=== PATIENT | female | born 1960 | race Caucasian/White ===

== ENCOUNTER 2019-09-14 15:07 | Emergency (ER) | payer OTHER ==
[~2019-09-14] VITALS: Ht 162.6 cm; Wt 49.9 kg
[2019-09-14] VITALS (7 sets, daily range): BP systolic 122–189; BP diastolic 72–99
--- NOTE | 2019-09-14 15:35 | Emergency Room Report ---
History of Present Illness General Chief Complaint: Overdose Source: EMS (Baldomero Johnson MD) Present Illness HPI Disclaimer: Please note that this report is being documented using DRAGON technology. This can lead to erroneous entry secondary to incorrect interpretation by the dictating instrument. HPI: This is a 55-year-old female with a history of Parkinson's, severe spinal scoliosis/stenosis currently awaiting spinal fusion at [facility] in October presenting after an intentional overdose on [place]. The patient states that she has been in severe pain for a long time now and could no longer bear to be in pain all day and could no longer wait for her spinal surgery as scheduled. Throughout the morning she is taking handfuls, stating proximally 5 at a time, [place] tablets for an estimated total ingestion of 40 to 50 tablets. This was spread out over several hours. She noted nausea at home but has not vomited. She was complaining of abdominal pain though this is improving. Patient called her sister to "say ryankirk" who informed EMS and fire. They found her awake and alert, no respiratory distress, no interventions were performed. Patient is tearful and reports feeling significant helplessness stating that she has seen specialists all over town and no one has been able to help her with her pain. This was her first attempt at self-harm. Also states she had a small amount of vodka along with the [place] tablets. Denies any other coingestants. She follows with a psychiatrist at [place]. PMH: Parkinson's, spinal stenosis, depression PSH: Appendectomy, lithotripsy Allergies: Denies Social Hx: Denies drug or alcohol abuse (Baldomero Johnson MD) Allergies: Coded Allergies: No Known Allergies (Unverified , 09/14/19) Nursing Documentation-PMH Past Medical History: No History, Except For (Baldomero Johnson MD) Review of Systems All Other Systems: negative except mentioned in HPI (Baldomero Johnson MD) Physical Exam Vital Signs Date Time Temp Pulse Resp B/P (MAP) Pulse Ox O2 Delivery O2 Flow Rate FiO2 09/14/19 15:10 98.1 134 20 161/75 (103) 98 Room Air General: Awake and alert, tearful and emotional, well-kempt HEENT: NC/AT. EOMI. PERRLA. Pupils are 4 mm bilaterally. Moist mucous membranes Cardiovascular: Tachycardic. S1 and S2 normal. No murmur appreciated Resp: Normal work of breathing. No cough, wheezing or crackles appreciated Abdomen: Abdomen is soft, nondistended. Nontender Skin: Intact. No abrasions, laceration or rash over the exposed skin. There is bruising over the left forearm, appears to be healing MSK: Normal tone and bulk. Moving all extremities. No obvious deformity. Neuro: Awake and alert. Mentating appropriately. Good historian, no ataxia. Facial expressions are symmetrical. Good insight into her medical condition. (Baldomero Johnson MD) Medical Decision Making Diagnostic Impression: Primary Impression: Suicide ideation Additional Impression: Alcohol withdrawal syndrome Qualified Codes: F10.230 - Alcohol dependence with withdrawal, uncomplicated ER Course Is a 58-year-old female with a history of chronic back pain who took 40 to 60 tablets of [place] with a minor amount of alcohol today as a suicide attempt. She arrives tachycardic but otherwise has vital signs within normal limits. We will start a broad metabolic, toxic infectious work-up as the patient will require psychiatric evaluation. She continues to endorse feeling hopeless but states that this ingestion today was more to stop the pain rather than wanting to truly kill herself. Laboratory Tests Test 09/14/19 15:47 09/14/19 18:00 White Blood Count 6.5 K/UL (4.8-10.8) Red Blood Count 3.79 M/UL (4.20-5.40) L Hemoglobin 13.3 G/DL (12.0-16.0) Hematocrit 37.5 % (37.0-47.0) Mean Corpuscular Volume 99 FL (80-99) Mean Corpuscular Hemoglobin 35.0 PG (27.0-31.0) H Mean Corpuscular Hemoglobin Concent 35.3 G/DL (32.0-36.0) Red Cell Distribution Width 10.3 % (11.6-14.8) L Platelet Count 275 K/UL (150-450) Mean Platelet Volume 5.6 FL (6.5-10.1) L Neutrophils (%) (Auto) 72.6 % (45.0-75.0) Lymphocytes (%) (Auto) 20.4 % (20.0-45.0) Monocytes (%) (Auto) 6.3 % (1.0-10.0) Eosinophils (%) (Auto) 0.2 % (0.0-3.0) Basophils (%) (Auto) 0.5 % (0.0-2.0) Sodium Level 144 MMOL/L (136-145) Potassium Level 3.9 MMOL/L (3.5-5.1) Chloride Level 105 MMOL/L (98-107) Carbon Dioxide Level 20 MMOL/L (21-32) L Anion Gap 19 mmol/L (5-15) H Blood Urea Nitrogen 13 mg/dL (7-18) Creatinine 0.4 MG/DL (0.55-1.30) L Estimate Glomerular Filtration Rate > 60 mL/min (>60) Glucose Level 130 MG/DL (74-106) H Calcium Level 10.2 MG/DL (8.5-10.1) H Total Bilirubin 1.0 MG/DL (0.2-1.0) Aspartate Amino Transferase (AST) 43 U/L (15-37) H Alanine Aminotransferase (ALT) 9 U/L (12-78) L Alkaline Phosphatase 76 U/L (46-116) Total Creatine Kinase 104 U/L (26-308) Creatine Kinase MB 0.7 NG/ML (0.0-3.6) Creatine Kinase MB Relative Index 0.6 Troponin I 0.000 ng/mL (0.000-0.056) Total Protein 7.2 G/DL (6.4-8.2) Albumin 3.3 G/DL (3.4-5.0) L Globulin 3.9 g/dL Albumin/Globulin Ratio 0.8 (1.0-2.7) L Salicylates Level 2.7 ug/mL (2.8-20) L Acetaminophen Level < 2 MCG/ML (10-30) L Serum Alcohol 62 mg/dL Urine Color Pale yellow Urine Appearance Clear Urine pH 6 (4.5-8.0) Urine Specific [place] 1.020 (1.005-1.035) Urine Protein 1+ (NEGATIVE) H Urine Glucose (UA) Negative (NEGATIVE) Urine Ketones 3+ (NEGATIVE) H Urine Blood 2+ (NEGATIVE) H Urine Nitrite Negative (NEGATIVE) Urine Bilirubin Negative (NEGATIVE) Urine Urobilinogen Normal MG/DL (0.0-1.0) Urine Leukocyte Esterase Negative (NEGATIVE) Urine RBC 5-10 /HPF (0 - 2) H Urine WBC 0-2 /HPF (0 - 2) Urine Squamous Epithelial Cells Few /LPF (NONE/OCC) Urine Bacteria Moderate /HPF (NONE) H Urine Opiates Screen Negative (NEGATIVE) Urine Barbiturates Screen Negative (NEGATIVE) Phencyclidine (PCP) Screen Negative (NEGATIVE) Urine Amphetamines Screen Negative (NEGATIVE) Urine Benzodiazepines Screen Negative (NEGATIVE) Urine Cocaine Screen Negative (NEGATIVE) Urine Marijuana (THC) Screen Negative (NEGATIVE) (Baldomero Johnson MD) ER Course This patient signed out to me. She presents with suicidal thoughts and reported opiate overdose. Her Tylenol level is unremarkable. Opiate is negative. Her alcohol level is only 62. She became tachycardic and hypertensive. I suspect that she is going to withdrawal. She admits to the nurse that she drinks about half a bottle of vodka a day. She is giving IV fluid and Ativan IV. At this moment in time she is not medically clear for psychiatric admission. She will need further evaluation and monitoring for alcohol withdrawal. She is calm. I discussed the case with Dr. Ford who will see if she could be transferred to [place] [facility] for further monitoring. (Teddy Anguiano MD) EKG Diagnostic Results EKG Time: 15:35 Rate: tachycardiac Rhythm: NSR ST Segments: no acute changes Other Impression Sinus tachycardia, normal axis, normal intervals. No ST segment changes. (Baldomero Johnson MD) Rhythm Strip Diag. Results Rhythm Strip Time: 15:34 EP Interpretation: yes Rate: 120s Rhythm: NSR, no PVC's, no ectopy (Baldomero Johnson MD) Reevaluation Time: 18:16 Last Vital Signs Date Time Temp Pulse Resp B/P (MAP) Pulse Ox O2 Delivery O2 Flow Rate FiO2 09/14/19 15:10 98.1 134 20 161/75 (103) 98 Room Air Status: unchanged Reevaluation Impression Labs thus far have returned within normal limits. Acetaminophen and aspirin levels are negative. There is slight elevation in alcohol but notes only 62. The patient is awake and alert and in no distress. Remainder of blood work is unremarkable. Drug screen and urinalysis are pending however they would not change medical management at this point. Difficult to say whether or not she actually did ingest these tablets of [place] as her Tylenol level should be elevated in that case however the patient will require psychiatric evaluation. She is a [facility] patient and will be transferred to 1 of their psychiatric facilities. Discussed with the accepting doctor who agrees with this plan. She is medically cleared for psychiatric evaluation. 2200: No evidence of infection on urinalysis. Drug screen is returned negative. Do not believe the patient took any opiates, Tylenol or salicylates. Believe her frustration over her multiple medical conditions is causing her significant distress. She remains on 5150 hold for suicidal ideation will be transferred to [facility] for psychiatric evaluation. (Baldomero Johnson MD) Status: improved (Teddy Anguiano MD) Disposition: XFER SHT-TRM HOSP Condition: Stable Baldomero Johnson MD Sep 14, 2019 15:35 Teddy Anguiano MD Sep 15, 2019 00:37
--- NOTE | 2019-09-14 16:00 | NUR ---
ED Nurse Note: Pt awake, alert, verbally responsive. Sitter at bedside. Will continue to monitor.
--- NOTE | 2019-09-14 16:00 | NUR ---
ED Nurse Note: Received report from charge nurse; pt BIB 911 d/t ingestion of approx 40 tablets of oxycodone. Pt on hospital gown and mathematical sciences professor, ST. Pt awake, alert, oriented. Vebally responsive and able to make needs known. On room air, no acute distress noted. No vomiting noted at this time. Sitter noted at this time. Will continue to monitor.
[2019-09-14 16:01] LABS: BASOPHILS % (AUTO) 0.5 % (0.0-2.0); EOSINOPHILS % (AUTO) 0.2 % (0.0-3.0); HEMATOCRIT 37.5 % (37.0-47.0); HEMOGLOBIN 13.3 G/DL (12.0-16.0); LYMPHOCYTES % (AUTO) 20.4 % (20.0-45.0); MEAN CORPUSCULAR VOLUME 99 FL (80-99); MONOCYTES % (AUTO) 6.3 % (1.0-10.0); NEUTROPHILS % (AUTO) 72.6 % (45.0-75.0); PLATELET COUNT 275 K/UL (150-450); RED BLOOD COUNT 3.79 M/UL (4.20-5.40); RED CELL DISTRIBUTION WIDTH 10.3 % (11.6-14.8); WHITE BLOOD COUNT 6.5 K/UL (4.8-10.8)
[2019-09-14 16:11] LABS: ANION GAP 19 mmol/L (5-15); BLOOD UREA NITROGEN 13 mg/dL (7-18); CALCIUM 10.2 MG/DL (8.5-10.1); CARBON DIOXIDE 20 MMOL/L (21-32); CHLORIDE 105 MMOL/L (98-107); CREATININE 0.4 MG/DL (0.55-1.30); POTASSIUM 3.9 MMOL/L (3.5-5.1); SODIUM 144 MMOL/L (136-145)
[2019-09-14 16:24] LABS: ALANINE AMINOTRANSFERASE 9 U/L (12-78); ALBUMIN 3.3 G/DL (3.4-5.0); ALBUMIN/GLOBULIN RATIO 0.8 (1.0-2.7); ALKALINE PHOSPHATASE 76 U/L (46-116); ASPARTATE AMINO TRANSFERASE 43 U/L (15-37); CKMB 0.7 NG/ML (0.0-3.6); CREATINE KINASE 104 U/L (26-308)
--- NOTE | 2019-09-14 17:53 | NUR ---
ED Nurse Note: Urine collected and sent to lab. Pt denies SI/AH/VH at this time. Sitter at bedside will continue to monitor.
--- NOTE | 2019-09-14 18:10 | NUR ---
ED Nurse Note: Report given to Callie from [facility] via telephone.
[2019-09-14 18:16] LABS: APPEARANCE,URINE CLEAR; BILIRUBIN, URINE NEGATIVE (NEGATIVE); COLOR,URINE PALE YELLOW; GLUCOSE, URINE (UA) NEGATIVE (NEGATIVE); KETONES,URINE 3+ (NEGATIVE); LEUKOCYTE ESTERASE ,URINE NEGATIVE (NEGATIVE); NITRITE,URINE NEGATIVE (NEGATIVE); PH,URINE 6 (4.5-8.0); PROTEIN,URINE 1+ (NEGATIVE); UROBILINOGEN,URINE NORMAL MG/DL (0.0-1.0)
--- NOTE | 2019-09-14 19:23 | NUR ---
HAND-OFF: Report given to RAFI Brooks.
--- NOTE | 2019-09-14 19:30 | NUR ---
ED Nurse Note: Patient in treatment 2. Reports a hisoptry of back pain awaiting surgery under care of Dr Martinez. States she attended [facility] due to increasing pain and reports taking 40 tablets of norco today. Patient states now her back pain feels better pain score 3. No ankle pain. IV access insitu to the left hand dorsal aspect. Vital signs rechecked. Inocente Vernon in attendance. Patient statesd she has no hisotry of anxiety but appears anxious at this time. Patient denies thoughts if suicide/homicide at this time.
[2019-09-14] MEDS ORDERED: LORazepam Inj 2mg/ml 1ml IV ONE ×2 (22:30→23:45)
--- NOTE | 2019-09-14 22:37 | NUR ---
ED Nurse Note: noted pt elevated BP and heartrate, ermd notified, pt not in distress but states she drinks everyday.
[2019-09-14] MEDS ORDERED: LORazepam 1mg tab ORAL ONE (22:45)
--- NOTE | 2019-09-14 23:24 | NUR ---
ED Nurse Note: Patient ambulatory to bedside commode.
--- NOTE | 2019-09-14 23:56 | NUR ---
ED Nurse Note: Patient remains tachycardic. Patient reports drinking 1/3 to half a bottle of vodka daily patient states that sometimes she will drink the whole bottle. Heart rate noted to be elevtated and BP also hypertensive. Discussed with MD. IV access established on the left forearm by RN. Medications prescribed. Patient transferred to room 3, hydralazine as prescribed. Vital signs monitored. Handoff to RAFI Sheriff.
[2019-09-15] VITALS: BP 121/51
[2019-09-15] MEDS ORDERED: LORazepam Inj 2mg/ml 1ml IV ONE (00:15)
--- NOTE | 2019-09-15 00:34 | NUR ---
ED Nurse Note: received report from RAFI kumar . pt is in bed awake, alert. hr 130s at this time.
[2019-09-15] MEDS ORDERED: HYDROmorphone 1mg/ml Carpuject IVP ONE (01:00)
[2019-09-15 01:11] VITALS: BP 129/56
--- NOTE | 2019-09-15 01:11 | NUR ---
ED Nurse Note: report given to Steven Yarbrough from [facility].
[2019-09-15 02:22] VITALS: BP 132/84
--- NOTE | 2019-09-15 02:22 | NUR ---
ED Nurse Note: [facility] ambulance arrived. pt was then transfered to [facility] in stable condition. IV site to right forearm 20g is intact. Pt is alert x4. All belonging given to ambulance personnel.
== END 2019-09-15 02:22 | disposition short-term general hospital (02) ==
LOC: EDBD 15:07 → EMR 16:01
DX: R45.851 Suicidal ideations (principal); F10.230 Alcohol dependence with withdrawal, uncomplicated; G20 Parkinson's disease; F32.9 Major depressive disorder, single episode, unspecified; Z90.49 Acquired absence of other specified parts of digestive tract; M41.9 Scoliosis, unspecified; M48.00 Spinal stenosis, site unspecified
CPT/HCPCS: 36415; 80053; 80307; 81003; 82550; 82553; 84484; 85025; 87086; 93005; 96361; 96374; 96375; 96376; 99285; G0480; J0360; J1170; J2405; J7030